=== PATIENT | male | born 1985 | race Caucasian/White ===

== ENCOUNTER 2016-11-27 11:54 | Emergency (ER) | payer OTHER ==
[2016-11-27] MEDS ORDERED: OPTIRAY 350 100 ML VIAL HMH IV ONE (11:55)
[2016-11-27] MEDS ORDERED: SODIUM CHLORIDE 0.9% 1,000 ML ONE (13:27)
== END 2016-11-27 15:32 | disposition home or self-care (01) ==
LOC: ER 11:54
CPT/HCPCS: 36415 ×2; 74177 ×2; 80053 ×2; 81003 ×2; 83690 ×2; 85025 ×2; 96360; 96361; Q9967